=== PATIENT | female | born 1975 | race Caucasian/White ===

== ENCOUNTER → 2020-03-29 14:53 | Outpatient (CLI) | payer OTHER, SELFPAY ==
--- NOTE | ~2020-03-29 | MM_ITS ---
EXAMINATION: MM screening nancy BI w alondra HISTORY: Screening TECHNIQUE: Craniocaudal and mediolateral oblique 3-D tomosynthesis images were obtained and synthetic 2-D images were generated. CAD analysis was submitted and interpreted. COMPARISON: Comparison to multiple prior studies sequentially, with oldest reviewed study dated 08/30. BREAST PARENCHYMAL COMPOSITION: The breasts are heterogenously dense, which may obscure small masses. FINDINGS: There are developing bilateral breast asymmetries on CC views. No corresponding abnormality is identified on MLO views. IMPRESSION: 1. Developing bilateral breast asymmetries. 2. Additional mammographic views and possible breast ultrasound are recommended. BI-RADS Category 0: Incomplete: Needs additional imaging evaluation. Reviewed, dictated and finalized at location A. TURBINE SERVICE TECHNICIAN IMPRESSION: 1. Developing bilateral breast asymmetries. 2. Additional mammographic views and possible breast ultrasound are recommended . BI-RADS Category 0: Incomplete: Needs additional imaging evaluation.
== END ==
PROVIDERS: PCP Student in an Organized Health Care Education/Training Program; Visit Provider Obstetrics & Gynecology
DX: Z12.31 Encounter for screening mammogram for malignant neoplasm of breast (principal); R92.8 Other abnormal and inconclusive findings on diagnostic imaging of breast
CPT/HCPCS: 77063; 77067

== ENCOUNTER → 2020-04-22 14:20 | Outpatient (CLI) | payer OTHER, SELFPAY ==
--- NOTE | ~2020-04-22 | MMUS_ITS ---
EXAMINATION: MM diagnostic mammo BI, US breast BI complete HISTORY: Follow-up bilateral breast asymmetries TECHNIQUE: Additional 3-D tomosynthesis images of the breasts were performed and synthetic 2-D images were generated. CAD analysis was submitted and interpreted. High resolution bilateral breast ultraso und was performed. COMPARISON: Comparison to multiple prior studies sequentially, with oldest reviewed study dated 03/2015. BREAST PARENCHYMAL COMPOSITION: The breasts are heterogenously dense, which may obscure small masses. FINDINGS: MAMMOGRAPHIC FINDINGS: There is a radiolucent mass in the upper outer quadrant of the right breast posteriorly measuring 1.9 cm maximum dimension. There are subareolar masses of the left breast which are obscured by overlying fibroglandular tissue. No suspicious calcifications or architectural distortion. ULTRASOUND: Bilateral breast ultrasound: There are multiple simple and complicated cysts of both breasts correspo nding to the abnormality seen on abnormality seen on mammography. The largest cluster of cysts in the left breast at 12-1:00 measures 2.3 cm maximum dimension. No suspicious masses to suggest malignancy . IMPRESSION: 1. No evidence for malignancy in either breast. Bilateral breast cysts. 2. Routine yearly screening mammogram and regular clinical breast examination are recommended. BI-RADS Category 2: Benign finding(s). Reviewed, dictated and finalized at location A. SHORTAGE INVESTIGATOR IMPRESSION: 1. No evidence for malignancy in either breast. Bilateral breast cysts. 2. Routine yearly screening mammogram and regular clinical breast examination a re recommended. BI-RADS Category 2: Benign finding(s).
== END ==
PROVIDERS: PCP Student in an Organized Health Care Education/Training Program; Visit Provider Obstetrics & Gynecology
DX: R92.8 Other abnormal and inconclusive findings on diagnostic imaging of breast (principal)
CPT/HCPCS: 76641; 77066

== ENCOUNTER → 2020-10-28 11:01 | Outpatient (CLI) | payer OTHER, SELFPAY ==
--- NOTE | ~2020-10-28 | MR_ITS ---
EXAMINATION: MR knee LT wo con DATE: 10/28/2020 12:10 INDICATION: Anterior cruciate ligament sprain presenting with generalized left knee pain post twistin g injury one month prior. TECHNIQUE: Magnetic resonance imaging (MRI) of the left knee was performed without intravenous contra st. Sequences included coronal PD-weighted FSE, coronal PD-weighted FS FSE, sagittal T2-weighted FSE , sagittal PD-weighted FS FSE and axial PD weighted fat saturated FSE. COMPARISON: None. FINDINGS: Medial compartment: There is thickening and prominent increased intrasubstance signal within the body and posterior horn of the medial meniscus which does not unambiguously contact the articular surface to meet criteria fo r meniscal tear which could be consistent with mucoid degeneration. Partial-thickness cartilage loss with subarticular edema along the posterolateral margin of the medial tibial plateau. Partial-thickne ss chondral fissuring without degenerative subchondral changes at the anterior weightbearing medial f emoral condyle. Small marginal osteophytes are present. Lateral compartment: Lateral meniscus is normal. Partial-thickness chondral ulceration without degenerative subchondral ch anges along the lateral side of the anterior weightbearing medial femoral condyle. Additional small p artial-thickness chondral fissure at the central aspect of the lateral tibial plateau. Small marginal osteophytes are present. Patellofemoral compartment: Full/near full-thickness cartilage loss involving the medial two thirds of the lateral patellar facet extending across the apical ridge where there is minimal subarticular edema. Additional full/near fu ll-thickness cartilage loss involving the lateral two thirds of the lateral trochlea with additional minimal scattered subarticular edema. Partial-thickness chondral fissuring without degenerative subch ondral changes at the trochlear groove and lateral side of the medial trochlea. Small patellar and mo derate-sized trochlear marginal osteophytes are present. Ligaments and tendons: Anterior and posterior cruciate ligaments are normal. The medial collateral ligament and fibular chadd ateral ligament complex are normal. The extensor mechanism is normal. The visualized medial and later al hamstring tendons as well as the iliotibial band are normal. Fluid: Moderate-sized left knee joint effusion with synovitis at the suprapatellar pouch and along the poste rior margin of Hoffa's fat pad. There is a cluster of at least 3 small loose osteochondral bodies, th e largest measuring 6 mm in maximal diameter located within the recess anterior to the anterior root of the lateral meniscus. Multiloculated ganglion cysts in the deep popliteal fossa superior to the me dial and lateral femoral condyles. Additional small multilobulated ganglion cyst along the popliteal recess. Mild prepatellar edema without discrete bursal fluid collection. Osseous/other: There is approximately 7 mm lateral patellar subluxation. Alignment is otherwise normal. No fracture or pathologic marrow replacing process. IMPRESSION: 1. 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 2. 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 Stabilizing ligaments of the knee are normal.. Reviewed, dictated and finalized at location B. IMPRESSION: 1. Prominent increased intrasubstance signal in the thickened body and posterio r horn of the medial meniscus consistent with mucoid degeneration without discr ete tear. 2. Tricompartmental osteoarthritis, severe at the later
== END ==
PROVIDERS: PCP Student in an Organized Health Care Education/Training Program; Visit Provider Physician Assistant
DX: S83.512A Sprain of anterior cruciate ligament of left knee, initial encounter (principal); S83.242A Other tear of medial meniscus, current injury, left knee, initial encounter; M25.462 Effusion, left knee; M17.12 Unilateral primary osteoarthritis, left knee; X58.XXXA Exposure to other specified factors, initial encounter
CPT/HCPCS: 73721

== ENCOUNTER 2021-05-08 00:10 | Day surgery (SDC) | payer OTHER, SELFPAY ==
[2021-05-01 15:51] VITALS: BMI 36.6
--- NOTE | 2021-05-07 13:07 | WPDANESEPP ---
Anes - Eval Pre Procedure Procedure: Operation Date: 05/08/21 11:30 Proposed Procedures p Screening Colonoscopy - Jhony Anand MD Date/Time: 05/07/21 13:07 Pre Op Diagnosis: neoplasm screening Patient Data Age: 45 Gender: F Height: 1.65 m Weight: 100 kg Allergies Allergy/AdvReac Type Severity Reaction Status Date / Time ciprofloxacin Allergy Unknown Nausea Verified 05/01/21 12:59 metronidazole Allergy Unknown Nausea Verified 05/01/21 12:59 naproxen Allergy Unknown Nausea Verified 05/01/21 12:59 prochlorperazine Allergy Unknown Nausea Verified 05/01/21 12:59 Home Medications Medication Instructions Recorded Confirmed Type albuterol sulfate 2 puff INHALATION DAILY 05/01/21 05/01/21 History amlodipine 2.5 mg PO DAILY 05/01/21 05/01/21 History estradiol 1 mg PO DAILY 05/01/21 05/01/21 History omeprazole 40 mg PO DAILY 05/01/21 05/01/21 History simvastatin 40 mg PO DAILY 05/01/21 05/01/21 History venlafaxine 150 mg PO DAILY 05/01/21 05/01/21 History EC11/24/18 SR 98 Patient hx anesthesia problems: none Family hx anesthesia problems: none Results Review: All pre-operative results and documents have been reviewed as part of the pre-operative evaluation. [facility] Past Medical History Medical History Hyperlipidemia Obesity (BMI 30-39.9) ANDREAS (stress urinary incontinence, female) Surgical History Surgical History History of bladder suspension procedure Hx laparoscopic cholecystectomy S/P NEREIDA (total abdominal hysterectomy) Family History Family History Mother Patient's mother is in good health Father Patient's father is in good health Sibling Patient's sister is in good health Social History Social History Smoking status: Never smoker Alcohol intake: current Alcohol use details: occasion Substance use: never Substance use type: does not use Spiritual care concerns: No Exam Day of Procedure 05/07/21 13:07
[2021-05-08 10:35] VITALS: BP 162/99; PULSE 100; RESP 18; TEMP 36.6; O2SAT 97; BMI 37.8
[2021-05-08] MEDS: LACTATED RINGERS 1,000 ML 150 ML IV CONT (10:57)
--- NOTE | 2021-05-08 11:01 | WPDANESEFPP ---
Anes - Eval Final PreProcedure Day of Procedure 05/08/21 11:01 Patient weight: obese Heart: regular rate and rhythm Lungs: clear to auscultation and normal air movement Airway: Mallampati scale class II Neurological: alert and oriented Last oral intake: >/= 8 hours ASA classification: III Emergent: no Anesthetic plan: proceed Anesthesia type and monitoring: general GIVS and standard monitoring Results Review: All pre-operative results and documents have been reviewed as part of the pre-operative evaluation. Informed Consent: The patient's anesthetic plan and its attendant risks and benefits were discussed with the patient/family/POA. Questions were solicited and answers provided to the satisfaction of the patient/family/POA.
--- NOTE | 2021-05-08 11:20 | PM.HPGS ---
History of Present Illness History of Present Illness Consent: Risks, benefits, and alternatives have been discussed and questions answered. Patient agrees to proceed with procedure. Chief complaint: neoplasm screening Narrative: Yenny Cooney is a 45 year old female here for first screening colonoscopy Review of Systems Constitutional: Constitutional: Denies headache(s) and Denies weakness Eyes: Eyes: Denies blurry vision ENT: Reports Normal hearing present, Denies headache(s) and Denies neck pain Cardiovascular: Cardiovascular: Denies chest pain and Denies dyspnea Respiratory: Respiratory: Denies dyspnea Gastrointestinal: Gastrointestinal: Reports no additional gastrointestinal complaints Genitourinary: Genitourinary: Denies dysuria Musculoskeletal: Musculoskeletal: Denies neck pain Integumentary/Breasts: Skin/Breast: Denies dry skin Neurologic: Reports Normal hearing present, Denies headache(s) and Denies weakness Psychiatric: Psychiatric: Denies anxiety Endocrine: Endocrine: Denies change in body appearance Hematologic/Lymphatic: Hematologic/Lymphatic: Denies easy bleeding Allergic/Immunologic: Allergic/Immunologic: Denies urticaria PMFSH Past Medical History Medical History (Updated 05/08/21 @ 11:20 by Jhony Anand MD) Colon cancer screening Hyperlipidemia Obesity (BMI 30-39.9) ANDREAS (stress urinary incontinence, female) Surgical History Surgical History History of bladder suspension procedure Hx laparoscopic cholecystectomy S/P NEREIDA (total abdominal hysterectomy) Family History Family History Mother Patient's mother is in good health Father Patient's father is in good health Sibling Patient's sister is in good health Social History Social History Smoking status: Never smoker Alcohol intake: current Alcohol use details: occasion Substance use: never Substance use type: does not use Living arrangements: with family Spiritual care concerns: No Meds Home Medications and Allergies Home Medications Medication Instructions Recorded Confirmed Type albuterol sulfate 2 puff INHALATION DAILY 05/01/21 05/08/21 History amlodipine 2.5 mg PO DAILY 05/01/21 05/08/21 History estradiol 1 mg PO DAILY 05/01/21 05/08/21 History omeprazole 40 mg PO DAILY 05/01/21 05/08/21 History simvastatin 40 mg PO DAILY 05/01/21 05/08/21 History venlafaxine 150 mg PO DAILY 05/01/21 05/08/21 History Allergies Allergy/AdvReac Type Severity Reaction Status Date / Time ciprofloxacin Allergy Unknown Nausea Verified 05/08/21 10:42 metronidazole Allergy Unknown Nausea Verified 05/08/21 10:42 naproxen Allergy Unknown Nausea Verified 05/08/21 10:42 prochlorperazine Allergy Unknown Nausea Verified 05/08/21 10:42 Vital Signs Vital Signs - 24 hr 05/08/21 10:35 Temperature 97.9 F Pulse Rate 100 Respiratory Rate 18 Blood Pressure 162/99 H Pulse Oximetry 97 Exam Const: General: comfortable and no acute distress HENMT: General nose exam: Normal nares present Eyes: General: appearance normal, both eyes and all related structures Neck: Neck: no JVD Resp: Auscultation: clear to auscultation bilaterally Cardio: Rate: regular rate Rhythm: regular rhythm GI: Inspection: non-distended GI Palp: Yes Soft to palpation Skin: General skin exam: normal color Neuro: General: gait normal Speech: normal speech Extrem: General: normal to inspection Psych: Mental Status: mental status grossly normal Assessment and Plan Assessment and plan (1) Colon cancer screening: Code(s): Z12.11 - Encounter for screening for malignant neoplasm of colon Status: Acute Assessment and Plan: colonoscopy
[2021-05-08 11:39] VITALS: BP 134/87; PULSE 93; RESP 18; O2SAT 96
[2021-05-08 11:49] VITALS: BP 146/104; PULSE 100; RESP 18; O2SAT 98
== END 2021-05-08 12:08 | disposition home or self-care (01) ==
PROVIDERS: PCP Student in an Organized Health Care Education/Training Program; Visit Provider Internal Medicine Gastroenterology
PROC: 0DJD8ZZ Inspection of Lower Intestinal Tract, Via Natural or Artificial Opening Endoscopic (ICD-10-PCS; CPT 45378; principal; 2021-05-08 11:30)
DX: Z12.11 Encounter for screening for malignant neoplasm of colon (principal); D12.3 Benign neoplasm of transverse colon; K57.30 Diverticulosis of large intestine without perforation or abscess without bleeding; E78.5 Hyperlipidemia, unspecified
CPT/HCPCS: 45385; 88305; J2704; J7120

== ENCOUNTER → 2021-05-26 10:15 | Outpatient (CLI) | payer OTHER, SELFPAY ==
--- NOTE | ~2021-05-26 | MM_ITS ---
EXAMINATION: MM screening nancy BI w alondra HISTORY: Screening TECHNIQUE: Craniocaudal and mediolateral oblique 3-D tomosynthesis images were obtained and synthetic 2-D images were generated. CAD analysis was submitted and interpreted. COMPARISON: Comparison to multiple prior studies sequentially, with oldest reviewed study dated 12/03. BREAST PARENCHYMAL COMPOSITION: The breasts are heterogeneously dense, which may obscure small masses . FINDINGS: There is no evidence of suspicious mass, calcification, or architectural distortion to sugg est malignancy in either breast. There has been no suspicious interval change. IMPRESSION: 1. No mammographic evidence of malignancy. 2. Recommend routine screening mammography in one year. BI-RADS Category 1: Negative Reviewed, dictated and finalized at location A.
== END ==
PROVIDERS: PCP Student in an Organized Health Care Education/Training Program; Visit Provider Obstetrics & Gynecology
DX: Z12.31 Encounter for screening mammogram for malignant neoplasm of breast (principal)
CPT/HCPCS: 77063; 77067

== ENCOUNTER 2022-02-20 09:59 | Outpatient (CLI) | payer OTHER, SELFPAY ==
--- NOTE | 2022-02-20 11:00 | NEURO_ITS ---
Impression: # History of bilateral hand numbness. # Bilateral Carpal Tunnel Syndrome, right worse than left. # Normal needle/EMG exam. # Clinical correlation recommended. Motor Nerve Conduction Upper Extremities Median Nerve Conduction Velocity (m/sec) Terminal Latency (msec) Response Voltage(mV) Elbow-Wrist Wrist Elbow Wrist Right 52 4.6 5 6 Left 55 3.4 6 6 Ulnar Nerve Conduction Velocity (m/sec) Terminal Latency (msec) Response Voltage(mV) Above Elbow Below Elbow Wrist Above Elbow Below Elbow Wrist Right 57 57 2.2 5 5 6 Left 58 58 2.3 3 3 3 F-Wave Latency Median (ms) Ulnar (ms) Right 26.9 25.9 Left 27.1 26.5 Sensory Nerve Conduction Upper Extremities Median Nerve Stimulation Terminal Latency (msec) Wrist/Digit Response Voltage (uV) Wrist Right 4.4/4.8 22/18 Left 4.3/4.4 18/16 Ulnar Nerve Stimulation Terminal Latency (msec) Wrist/Digit Response Voltage (uV) Wrist Right 2.2 34 Left 2.3 47 Radial Nerve Terminal Latency (msec) Response Voltage(mV) Right 1.8 38 Left 1.8 29 Left Right Muscles Examined Fibrillation Fasciculation Scarcity Voltage Duration Left Right Left Right Left Right Left Right Left Right Deltoid Biceps X X Brachioradialis Triceps X X Pronator Teres X X Ext Indicis X X Ext Digitorum X X Abd Poll Brev X X 1st Dorsal Interosseus Paraspinals MTDD
== END 2022-02-20 10:00 | disposition home or self-care (01) ==
PROVIDERS: PCP Student in an Organized Health Care Education/Training Program; Visit Provider Student in an Organized Health Care Education/Training Program
DX: G56.03 Carpal tunnel syndrome, bilateral upper limbs (principal)
CPT/HCPCS: 95886; 95911

== ENCOUNTER → 2022-06-05 10:28 | Outpatient (CLI) | payer OTHER, SELFPAY ==
--- NOTE | ~2022-06-05 | MM_ITS ---
EXAMINATION: MM screening nancy BI w alondra HISTORY: Screening mammogram TECHNIQUE: Craniocaudal and mediolateral oblique 3-D tomosynthesis images were obtained and synthetic 2-D images were generated. CAD analysis was submitted and interpreted. COMPARISON: 05/26/2021 bilateral screening mammogram April 22, 2020 diagnostic bilateral mammogram and complete bilateral breast ultrasound March 29, 2020 bilateral screening mammogram BREAST PARENCHYMAL COMPOSITION: Bilateral screening mammogram FINDINGS: Occasional benign calcifications. There is no evidence of suspicious mass, calcification, o r architectural distortion to suggest malignancy in either breast. There has been no suspicious inter fouzia change. IMPRESSION: 1. No mammographic evidence of malignancy. 2. Recommend routine screening mammography in one year. BI-RADS Category 2: Benign finding(s). Reviewed, dictated and finalized at location A.
== END ==
PROVIDERS: PCP Student in an Organized Health Care Education/Training Program; Visit Provider Obstetrics & Gynecology
DX: Z12.31 Encounter for screening mammogram for malignant neoplasm of breast (principal)
CPT/HCPCS: 77063; 77067